=== PATIENT | male | born 1960 | race Caucasian/White ===

== ENCOUNTER 2016-06-03 09:32 | Outpatient (CLI) | payer OTHER ==
--- NOTE | 2016-06-03 10:35 | DIAGNOSTIC IMAGING REPORT ---
PROCEDURE: XR CHEST 2 VIEW INDICATION: NICOTINE DEPENDENCY TECHNIQUE: PA and lateral views. COMPARISON: None. FINDINGS: Lungs are clear. Heart and mediastinum are normal. Thorax is normal. IMPRESSION: 1. Negative chest.
== END 2016-06-03 23:00 ==
LOC: XR SRH 09:32
DX: F17.200 Nicotine dependence, unspecified, uncomplicated (principal)